=== PATIENT | female | born 1970 | race American Indian/Alaskan Native ===

== ENCOUNTER 2016-10-02 10:04 | Emergency (ER) | payer SELFPAY ==
--- NOTE | 2016-10-02 15:57 | Emergency Department Report ---
- General Chief Complaint: Upper Respiratory Infection Stated Complaint: CHILLS AND BODYPAIN Time Seen by Provider: 10/02/16 15:32 Source: patient Mode of arrival: Ambulatory Limitations: No Limitations - History of Present Illness MD Complaint: fever, sore throat -: days(s) Severity: mild Quality: burning Associated Symptoms: fever, chills, myalgias, headache, sore throat, nausea, hoarseness. denies: stiff neck, chest pain, shortness of breath, abdominal pain , vomiting, rash - Related Data Previous Rx's Medication Instructions Recorded Last Taken Type Amoxicillin [Amoxicillin TAB] 875 mg PO BID #20 tablet 10/02/16 Unknown Rx Ondansetron [Zofran TAB] 4 mg PO Q8HR PRN #10 tablet 10/02/16 Unknown Rx Allergies Allergy/AdvReac Type Severity Reaction Status Date / Time No Known Allergies Allergy Unverified 10/02/16 11:10 ED Review of Systems ROS: Stated complaint: CHILLS AND BODYPAIN Other details as noted in HPI Constitutional: chills, fever, malaise Eyes: denies: eye pain, eye discharge, vision change ENT: throat pain Respiratory: denies: cough, orthopnea, shortness of breath, SOB with exertion, SOB at rest, stridor, wheezing Gastrointestinal: nausea. denies: abdominal pain, vomiting Musculoskeletal: myalgia Skin: denies: rash Neurological: headache. denies: paresthesias, confusion ED Past Medical Hx - Past Medical History Previous Medical History?: No - Surgical History Additional Surgical History: , hysterectomy - Social History Smoking Status: Never Smoker Substance Use Type: None - Medications Home Medications: Home Medications Medication Instructions Recorded Confirmed Last Taken Type Amoxicillin [Amoxicillin TAB] 875 mg PO BID #20 tablet 10/02/16 Unknown Rx Ondansetron [Zofran TAB] 4 mg PO Q8HR PRN #10 tablet 10/02/16 Unknown Rx ED Physical Exam - General Limitations: No Limitations General appearance: alert, in no apparent distress - Head Head exam: Present: atraumatic - Eye Eye exam: Present: normal appearance - ENT ENT exam: Present: other (I let tonsillar swelling and erythema without exudate) - Neck Neck exam: Present: full ROM, lymphadenopathy. Absent: tenderness, meningismus - Neurological Exam Neurological exam: Present: alert, oriented X3 ED Course Vital Signs 10/02/16 11:10 Temperature 98.8 F Pulse Rate 77 Respiratory 20 Rate Blood Pressure 116/75 O2 Sat by Pulse 100 Oximetry Critical care attestation.: If time is entered above; I have spent that time in minutes in the direct care of this critically ill patient, excluding procedure time. ED Disposition Clinical Impression: Tonsillitis Disposition: DISCHARGED TO HOME OR SELFCARE Is pt being admited?: No Condition: Stable Instructions: Tonsillitis (ED) Prescriptions: Amoxicillin [Amoxicillin TAB] 875 mg PO BID #20 tablet Ondansetron [Zofran TAB] 4 mg PO Q8HR PRN #10 tablet PRN Reason: Nausea And Vomiting Referrals: PRIMARY CARE, [Primary Care Provider] - 3-5 Days Forms: Work/School Release Form(ED)
[2016-10-02 16:15] VITALS: BP 113/71
== END 2016-10-02 16:15 | disposition home or self-care (01) ==
LOC: ED 10:04
DX: J03.90 Acute tonsillitis, unspecified (principal); M79.1 Myalgia; R11.0 Nausea
CPT/HCPCS: 99282

== ENCOUNTER 2016-11-30 16:41 | Emergency (ER) | payer SELFPAY ==
[2016-11-30 17:27] LABS: Basophils % (Auto) 0.6 % (0.0-1.8); Eosinophils % (Auto) 0.2 % (0.0-4.3); Hematocrit 37.9 % (30.3-42.9); Hemoglobin 11.9 gm/dl (10.1-14.3); Mean Corpuscular HGB Conc 32 % (30-34); Mean Corpuscular Volume 74 fl (79-97); Platelet Count 301 K/mm3 (140-440); Red Blood Count 5.11 M/mm3 (3.65-5.03); Red Cell Distribution Width 15.6 % (13.2-15.2); White Blood Count 12.3 K/mm3 (4.5-11.0)
[2016-11-30 17:37] LABS: Mean Corpuscular Hemoglobin 23 pg (28-32)
[2016-11-30 17:46] LABS: Alanine Aminotransferase 13 units/L (7-56); Albumin 4.1 g/dL (3.9-5); Albumin/Globulin Ratio 1.1 %; Alkaline Phosphatase 89 units/L (35-129); Anion Gap 20 mmol/L; BUN/Creatinine Ratio 12.85; Blood Urea Nitrogen 9 mg/dL (7-17); Carbon Dioxide 24 mmol/L (22-30); Chloride 94.4 mmol/L (98-107); Glucose 127 mg/dL (65-100); Potassium 4.1 mmol/L (3.6-5.0); Sodium 134 mmol/L (137-145); Total Protein 7.8 g/dL (6.3-8.2)
[2016-11-30] MEDS ORDERED: TYLENOL ONE (18:02)
[2016-11-30] MEDS ORDERED: TYLENOL PO ONE (18:14)
--- NOTE | 2016-11-30 20:38 | Emergency Department Report ---
ED ENT HPI - General Chief complaint: Sore Throat Stated complaint: CHEST PAIN/HEADACHE/LEG PAIN Time Seen by Provider: 11/30/16 21:00 Source: patient, family Mode of arrival: Ambulatory Limitations: No Limitations - History of Present Illness Initial comments: Patient here states that several was hurting. She reports fever and vomiting. Denies any drooling. She said it started this morning. Patient took over-the- counter pain medication. Denies any nausea at present. Denies any abdominal pain. Denies any urinary burning frequency or urgency. Denies any chest pain or difficulty swallowing. Denies any cough. She said her pain is about a 10 to her throat and worse with swallowing. She complaining of headache located to the front of her head and she said it comes and goes but she doesn't have any at present. I noticed on patient complains sheet that she was also complaining of leg pain and chest pain but patient said that she is not having those symptoms. She said she thinks she had heartburn and she reported that she was having chest pain but she doesn't have any chest pain or leg pain at present. EKG was done and it showed sinus tachycardia at 103. MD complaint: sore throat, other (headache) -: This morning Location: throat Severity: severe Severity scale (0 -10): 10 Quality: aching Worsens with: swallowing Associated Symptoms: fever, pain with swallowing, sore throat. denies: cough, gum swelling, toothache, tinnitus, hearing loss, discharge from ear, rhinorrhea - Related Data Previous Rx's Medication Instructions Recorded Last Taken Type Amoxicillin [Amoxicillin TAB] 875 mg PO BID #20 tablet 10/02/16 Unknown Rx Ondansetron [Zofran TAB] 4 mg PO Q8HR PRN #10 tablet 10/02/16 Unknown Rx Ibuprofen [Motrin] 600 mg PO Q8H PRN #15 tablet 11/30/16 Unknown Rx predniSONE [Deltasone] 50 mg PO QDAY #2 tab 11/30/16 Unknown Rx Allergies Allergy/AdvReac Type Severity Reaction Status Date / Time shellfish derived AdvReac Anaphylaxis Verified 11/30/16 17:00 ED Dental HPI - General Chief complaint: Sore Throat Stated complaint: CHEST PAIN/HEADACHE/LEG PAIN Source: patient Mode of arrival: Ambulatory Limitations: No Limitations - Related Data Previous Rx's Medication Instructions Recorded Last Taken Type Amoxicillin [Amoxicillin TAB] 875 mg PO BID #20 tablet 10/02/16 Unknown Rx Ondansetron [Zofran TAB] 4 mg PO Q8HR PRN #10 tablet 10/02/16 Unknown Rx Ibuprofen [Motrin] 600 mg PO Q8H PRN #15 tablet 11/30/16 Unknown Rx predniSONE [Deltasone] 50 mg PO QDAY #2 tab 11/30/16 Unknown Rx Allergies Allergy/AdvReac Type Severity Reaction Status Date / Time shellfish derived AdvReac Anaphylaxis Verified 11/30/16 17:00 ED Review of Systems ROS: Stated complaint: CHEST PAIN/HEADACHE/LEG PAIN Other details as noted in HPI Comment: All other systems reviewed and negative Constitutional: chills, fever Eyes: denies: eye discharge ENT: throat pain. denies: ear pain, dental pain, congestion Respiratory: no symptoms reported Cardiovascular: denies: chest pain, palpitations, edema, syncope Gastrointestinal: nausea, vomiting. denies: abdominal pain Musculoskeletal: denies: back pain, arthralgia Skin: denies: rash Neurological: headache. denies: vertigo, weakness, numbness, paresthesias, confusion, abnormal gait ED Past Medical Hx - Past Medical History Previous Medical History?: No - Surgical History Past Surgical History?: No Additional Surgical History: , hysterectomy - Family History Family history: no significant - Social History Smoking Status: Never Smoker Substance Use Type: None - Medications Home Medications: Home Medications Medication Instructions Recorded Confirmed Last Taken Type Amoxicillin [Amoxicillin TAB] 875 mg PO BID #20 tablet 10/02/16 Unknown Rx Ondansetron [Zofran TAB] 4 mg PO Q8HR PRN #10 tablet 10/02/16 Unknown Rx Ibuprofen [Motrin] 600 mg PO Q8H PRN #15 tablet 11/30/16 Unknown Rx predniSONE [Deltasone] 50 mg PO QDAY #2 tab 11/30/16 Unknown Rx ED Physical Exam - General Limitations: No Limitations General appearance: alert, in no apparent distress - Head Head exam: Present: atraumatic, normocephalic, normal inspection - Eye Eye exam: Present: normal appearance, PERRL, EOMI. Absent: periorbital swelling , periorbital tenderness Pupils: Present: normal accommodation - ENT ENT exam: Present: mucous membranes moist, TM's normal bilaterally, normal external ear exam. Absent: normal exam, normal orophraynx - Expanded ENT Exam Expanded Ear exam: Present: normal external inspection Mouth exam: Present: normal external inspection. Absent: drooling, trismus, muffled voice, tongue normal, tongue elevation, laceration Throat exam: Positive: tonsillar erythema, tonsillomegaly, tonsillar exudate, other (Positive pharyngeal erythema and exudates). Negative: normal inspection , R peritonsillar mass, L peritonsillar mass - Neck Neck exam: Present: normal inspection, full ROM, lymphadenopathy. Absent: tenderness, meningismus - Respiratory Respiratory exam: Present: normal lung sounds bilaterally. Absent: respiratory distress, chest wall tenderness, accessory muscle use, decreased breath sounds, prolonged expiratory - Cardiovascular Cardiovascular Exam: Present: normal rhythm, tachycardia, normal heart sounds - GI/Abdominal GI/Abdominal exam: Present: soft, normal bowel sounds. Absent: distended, tenderness, guarding, rebound, rigid - Extremities Exam Extremities exam: Present: normal inspection, full ROM, normal capillary refill. Absent: tenderness, pedal edema, joint swelling, calf tenderness - Back Exam Back exam: Present: normal inspection, full ROM - Neurological Exam Neurological exam: Present: alert, reflexes normal, normal gait, oriented X3, other (neurologically intact.). Absent: motor sensory deficit - Psychiatric Psychiatric exam: Present: normal affect, normal mood - Skin Skin exam: Present: warm, dry, intact, normal color. Absent: rash ED Course Vital Signs 11/30/16 11/30/16 11/30/16 17:01 18:15 20:54 Temperature 103.1 F H 100.5 F H Pulse Rate 117 H 106 H Respiratory 18 20 16 Rate Blood Pressure 163/95 Blood Pressure 119/68 [Left] O2 Sat by Pulse 100 100 Oximetry Vital Signs 11/30/16 11/30/16 11/30/16 17:01 18:15 20:54 Temperature 103.1 F H 100.5 F H Pulse Rate 117 H 106 H Respiratory 18 20 16 Rate Blood Pressure 163/95 Blood Pressure 119/68 [Left] O2 Sat by Pulse 100 100 Oximetry 11/30/16 21:48 Temperature Pulse Rate 98 H Respiratory 18 Rate Blood Pressure Blood Pressure [Left] O2 Sat by Pulse 100 Oximetry - Reevaluation(s) Reevaluation #1: 11/30/16 21:49 Patient opT to receive Bicillin 1.2 mu in emergency room to treat strep throat. Patient also received prednisone 60 mg by mouth for swelling and Motrin 800 mg by mouth. He was orally hydrated and are fevers down to 100.5 and heart rate down to 98. ED Medical Decision Making - Lab Data Result diagrams: 11/30/16 17:11 11/30/16 17:11 Lab Results 11/30/16 11/30/16 Range/Units 17:11 17:11 WBC 12.3 H (4.5-11.0) K/mm3 RBC 5.11 H (3.65-5.03) M/mm3 Hgb 11.9 (10.1-14.3) gm/dl Hct 37.9 (30.3-42.9) % MCV 74 L (79-97) fl MCH 23 L (28-32) pg MCHC 32 (30-34) % RDW 15.6 H (13.2-15.2) % Plt Count 301 (140-440) K/mm3 Lymph % (Auto) 11.9 L (13.4-35.0) % Leslie % (Auto) 7.0 (0.0-7.3) % Eos % (Auto) 0.2 (0.0-4.3) % Baso % (Auto) 0.6 (0.0-1.8) % Lymph # 1.5 (1.2-5.4) K/mm3 Leslie # 0.9 H (0.0-0.8) K/mm3 Eos # 0.0 (0.0-0.4) K/mm3 Baso # 0.1 (0.0-0.1) K/mm3 Seg Neutrophils % 80.3 H (40.0-70.0) % Seg Neutrophils # 9.8 H (1.8-7.7) K/mm3 Sodium 134 L (137-145) mmol/L Potassium 4.1 (3.6-5.0) mmol/L Chloride 94.4 L (98-107) mmol/L Carbon Dioxide 24 (22-30) mmol/L Anion Gap 20 mmol/L BUN 9 (7-17) mg/dL Creatinine 0.7 (0.7-1.2) mg/dL Estimated GFR > 60 ml/min BUN/Creatinine Ratio 12.85 % Glucose 127 H (65-100) mg/dL Calcium 9.0 (8.4-10.2) mg/dL Total Bilirubin 0.40 (0.1-1.2) mg/dL AST 22 (5-40) units/L ALT 13 (7-56) units/L Alkaline Phosphatase 89 (35-129) units/L Total Protein 7.8 (6.3-8.2) g/dL Albumin 4.1 (3.9-5) g/dL Albumin/Globulin Ratio 1.1 % Strep test positive - EKG Data -: EKG Interpreted by Me () Rate: tachycardia (103) - EKG Data Interpretation: no acute changes - Medical Decision Making ED course: Patient with diagnosis of strep pharyngitis, enlarged tonsils, fever in adults and tachycardia. I gave patient a choice of being treated in emergency room with Bicillin LA 1 time order to be treated with penicillin 3 times a day for 10 days. He shouldn't chose to be treated with Bicillin LA. Received Bicillin LA 1.2 MU injection, Deltasone 60 mg by mouth and Motrin 800 mg emergency room. Prior to these medication patient received Tylenol 650 mg when necessary emergency room for fever. temperature is now 100.5 and a heart rate 98. tolerate liquid juice in the emergency room without any difficulties. I discussed the patient diagnosis and treatment plan and she is in agreement. Discharged home with prescription for prednisone 50 mg 2 days and Motrin 600 mg #15. She was discharged home with her family member in stable condition. I also went over her lab work Critical care attestation.: If time is entered above; I have spent that time in minutes in the direct care of this critically ill patient, excluding procedure time. ED Disposition Clinical Impression: Strep pharyngitis, Fever in adult, Tachycardia Disposition: DISCHARGED TO HOME OR SELFCARE Is pt being admited?: No Does the pt Need Aspirin: No Condition: Stable Instructions: Strep Throat (ED), Fever in Adults (ED) Additional Instructions: Please increase your fluid intake to 2-3 L of liquid per day to prevent fever and dehydration. Motrin every 8 hours as needed for sore throat and fever. You were given Bicillin long acting antibiotic in the emergency room and this will take here few strep throat. Follow up with primary care physician in 4 days and if he do not have one then follow-up with outside Medical Center. Prescriptions: Ibuprofen [Motrin] 600 mg PO Q8H PRN #15 tablet PRN Reason: Pain predniSONE [Deltasone] 50 mg PO QDAY #2 tab Referrals: PRIMARY CARE, [Primary Care Provider] - 12/04/16 [facility] [Outside] - 12/04/16 Forms: Work/School Release Form(ED)
[2016-11-30 20:55] VITALS: BP 119/68
[2016-11-30] MEDS ORDERED: MOTRIN PO ONE (21:05)
[2016-11-30] MEDS ORDERED: DELTASONE PO ONE (21:05)
[2016-11-30] MEDS ORDERED: BICILLIN L-A IM ONE (21:05)
== END 2016-11-30 22:14 | disposition home or self-care (01) ==
LOC: ED 16:41
DX: J02.0 Streptococcal pharyngitis (principal); R50.9 Fever, unspecified; R00.0 Tachycardia, unspecified; Z90.710 Acquired absence of both cervix and uterus; Z88.4 Allergy status to anesthetic agent
CPT/HCPCS: 36415; 80053; 85025; 87430; 93005; 93010; 96372; 99283; J0561; J7512

== ENCOUNTER 2017-01-16 19:21 | Emergency (ER) | payer SELFPAY ==
[2017-01-16 20:16] VITALS: BP 161/99
[2017-01-16 21:45] LABS: Basophils % (Auto) 0.7 % (0.0-1.8); Eosinophils % (Auto) 0.8 % (0.0-4.3); Hematocrit 37.6 % (30.3-42.9); Hemoglobin 11.9 gm/dl (10.1-14.3); Mean Corpuscular HGB Conc 32 % (30-34); Mean Corpuscular Volume 75 fl (79-97); Platelet Count 325 K/mm3 (140-440); Red Blood Count 5.04 M/mm3 (3.65-5.03); Red Cell Distribution Width 16.1 % (13.2-15.2)
[2017-01-16 21:47] LABS: Mean Corpuscular Hemoglobin 24 pg (28-32)
[2017-01-16 22:04] LABS: Bilirubin,Urine NEG (Negative); Blood,Urine NEG (Negative); Ketones,Urine NEG (Negative); Leukocyte Esterase,Urine NEG (Negative); Mucus,Urine 2+ /HPF; Nitrite,Urine NEG (Negative); Urobilinogen,Urine < 2.0 mg/dL (<2.0)
[2017-01-16 22:04] LABS: Alanine Aminotransferase 16 units/L (7-56); Albumin 4.3 g/dL (3.9-5); Albumin/Globulin Ratio 1.2 %; Alkaline Phosphatase 91 units/L (35-129); Anion Gap 19 mmol/L; BUN/Creatinine Ratio 11.42; Blood Urea Nitrogen 8 mg/dL (7-17); Calcium 9.1 mg/dL (8.4-10.2); Carbon Dioxide 26 mmol/L (22-30); Chloride 101.6 mmol/L (98-107); Glucose 105 mg/dL (65-100); Lipase 63 units/L (13-60); Potassium 4.1 mmol/L (3.6-5.0); Sodium 142 mmol/L (137-145); Total Protein 7.8 g/dL (6.3-8.2)
--- NOTE | 2017-01-18 01:20 | ED Elopement Review ---
ED Pt Elopement review - Results review Lab results: Laboratory Tests 01/16/17 01/16/17 01/16/17 20:36 20:36 21:30 WBC 10.0 RBC 5.04 H Hgb 11.9 Hct 37.6 MCV 75 L MCH 24 L MCHC 32 RDW 16.1 H Plt Count 325 Lymph % (Auto) 27.6 Day % (Auto) 5.2 Eos % (Auto) 0.8 Baso % (Auto) 0.7 Lymph # 2.7 Day # 0.5 Eos # 0.1 Baso # 0.1 Seg Neutrophils % 65.7 Seg Neutrophils # 6.5 Sodium 142 Potassium 4.1 Chloride 101.6 Carbon Dioxide 26 Anion Gap 19 BUN 8 Creatinine 0.7 Estimated GFR > 60 BUN/Creatinine Ratio 11.42 Glucose 105 H Calcium 9.1 Total Bilirubin 0.30 AST 14 ALT 16 Alkaline Phosphatase 91 Total Protein 7.8 Albumin 4.3 Albumin/Globulin Ratio 1.2 Lipase 63 H Urine Color Yellow Urine Turbidity Clear Urine pH 7.0 Ur Specific [place] 1.021 Urine Protein 30 mg/dl Urine Glucose (UA) Neg Urine Ketones Neg Urine Blood Neg Urine Nitrite Neg Urine Bilirubin Neg Urine Urobilinogen < 2.0 Ur Leukocyte Esterase Neg Urine WBC (Auto) 1.0 Urine RBC (Auto) 8.0 U Epithel Cells (Auto) 1.0 Urine Mucus 2+ - Call Back decision Pt Call Back Decision: Pt to F/U with PMD (patient should follow-up with primary care doctor within 24 hours, will return to the ER right away for evaluation for possible appendicitis)
== END 2017-01-16 22:08 | disposition left against medical advice (07) ==
LOC: ED 19:21
DX: R10.9 Unspecified abdominal pain (principal); Z53.21 Procedure and treatment not carried out due to patient leaving prior to being seen by health care provider
CPT/HCPCS: 36415; 80053; 81001; 83690; 85025